=== PATIENT | male | born 1975 | race Caucasian/White ===

== ENCOUNTER 2016-08-12 11:28 | Emergency (ER) | payer SELFPAY ==
[2016-08-12 11:36] VITALS: BP 155/101; PULSE 65; TEMP 97.6; BMI 33.6
[2016-08-12] MEDS ORDERED: OXYCODONE/APAP 5/325MG COMBO TABLET PO ONE (12:37)
--- NOTE | 2016-08-12 12:37 | PDOC ---
[id number] 3d LT FINGER LACERATION Time Seen by Provider: 08/12/16 12:22 History Source: Patient Exam Limitations: No Limitations, Language Barrier - History of Present Illness Initial Comments: 08/12/16 patient while at work patient while at work was pushing something through a disc pad grinder followed by a piece of wood when the disc pad grinder slipped causing him to impale his left fourth digit into the disc pad grinder, and crush injury incurred to left third digit. Patient has partial amputation of the distal aspect of her left fourth digit and a large blood blister to the pad of his left third digit Timing/Duration: reports: just prior to arrival, this afternoon Severity: Yes: severe Location: reports: extremities (left 4th digit laceration and crush injury ) Respiratory Risk Factors: reports: no cause identified Associated Symptoms: denies: denies symptoms Past History - Travel Traveled outside of the country in the last 30 days: No Close contact w/someone who was outside of country & ill: No - Past Medical History Allergies/Adverse Reactions: Allergies Allergy/AdvReac Type Severity Reaction Status Date / Time No Known Allergies Allergy Verified 08/12/16 11:37 Home Medications: Ambulatory Orders Amox-Tr/K Cl [Augmentin 875Mg Tablet] 1 tab PO BID #14 tablet 08/12/16 Oxycodone HCl/Acetaminophen [Percocet 5-325 mg Tablet -] 1 - 2 tab PO Q4H PRN # 20 tablet MDD 4 08/12/16 Other medical history: NONE - Psycho/Social/Smoking Cessation Hx Anxiety: No Suicidal Ideation: No Smoking History: Never smoked Hx Alcohol Use: No Drug/Substance Use Hx: No Substance Use Type: None Review of Systems - Review of Systems Able to Perform ROS?: Yes Is the patient limited [place] proficient: Yes Constitutional: Yes: See HPI, Loss of Appetite, Malaise. No: Symptoms Reported HEENTM: Yes: See HPI. No: Symptoms Reported Respiratory: No: Symptoms reported Cardiac (ROS): No: Symptoms Reported Musculoskeletal: Yes: Symptoms Reported, See HPI, Joint Pain, Joint Swelling Integumentary: Yes: Symptoms Reported, See HPI, Other Neurological: Yes: Symptoms reported All Other Systems: Reviewed and Negative *Physical Exam - Vital Signs Last Vital Signs Temp Pulse Resp BP Pulse Ox 97.6 F 65 20 155/101 98 08/12/16 11:32 08/12/16 11:32 08/12/16 11:32 08/12/16 11:32 08/12/16 11:32 - Physical Exam General Appearance: Yes: Nourished, Appropriately Dressed. No: Apparent Distress HEENT: positive: JACOB, TMs Normal Neck: positive: Supple. negative: Lymphadenopathy (R), Lymphadenopathy (L) Extremity: positive: Normal Range of Motion, Other (patient with complete avulsion laceration extending from DIP and distal aspect, palmar aspect of left fourth digit with complete loss of pad of finger. No nail involvement. Small pulsatile bleed at distal aspect . Flex and extend finger it has a large bullae fluid-filled/blood-filled blister to distal aspect of left third digit volar aspect just motion intact and no bleeding) Integumentary: positive: Dry, Swelling. 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 Started on it and been given Percocet for pain relief. With Xeroform gauze , Ortho-Glass splint fashioned with sling her request of Dr. Kumar. Reviewed case with him, who will see him in the office this next 2 days for definitive treatment and probable flap repair. Medical Decision Making - Medical Decision Making 08/12/16 12:[address] Kumar office, stated would return call ~ 10-15mins. 08/12/16 13:15 Dr. Kumar returned call, discussed case. He requested would be clean, wrapped with Xeroform gauze, and he would see in office for definitive repair *DC/Admit/Observation/Transfer Diagnosis at time of Disposition: Finger near amputation, left Qualifiers: Encounter type: initial encounter Qualified Code(s): S68.129A - Partial traumatic metacarpophalangeal amputation of unspecified finger, initial encounter - Discharge Dispostion Disposition: HOME Condition at time of disposition: Stable Admit: No - Prescriptions Prescriptions: Amox-Tr/K Cl [Augmentin 875Mg Tablet] 1 tab PO BID #14 tablet Oxycodone HCl/Acetaminophen [Percocet 5-325 mg Tablet -] 1 - 2 tab PO Q4H PRN # 20 tablet MDD 4 PRN Reason: Pain - Referrals Referrals: Eliu Kumar MD [Staff Physician] - - Patient Instructions Printed Discharge Instructions: DI for Laceration Repair Additional Instructions: Rest, keep hand elevated as much as possible, Do NOt Remove dressing, if bleeding reoccurs hold pressure as directed Call Dr. Kumar's office, [phone] for appointment tomorrow or Wednesday Augmentin 875 mg one tablet twice a day for 7 days Percocet one or 2 tablets every 6 hours as needed for severe pain - Post Discharge Activity Work/School Note: Back to Work
[2016-08-12] MEDS ORDERED: AMOX TR/POT CLAV 875MG/125MG TABLETS (FP) PO ONE (12:38)
[2016-08-12] MEDS ORDERED: AMOX TR/POT CLAV 875MG/125MG TABLETS (FP) ONE (12:40)
[2016-08-12] MEDS ORDERED: OXYCODONE/APAP 5/325MG COMBO TABLET ONE (12:41)
== END 2016-08-12 14:07 | disposition home or self-care (01) ==
LOC: JERFT 11:28 → JER 11:28 → JERFT 14:07
PROC: 2W3KX1Z Immobilization of Left Finger using Splint (ICD-10-PCS; principal; 2016-08-12)
DX: S68.125A Partial traumatic metacarpophalangeal amputation of left ring finger, initial encounter (principal)
CPT/HCPCS: 73140-TC-LT; 99281-25